=== PATIENT | male | born 2000 | race American Indian/Alaskan Native ===

== ENCOUNTER 2020-05-13 09:35 | Emergency (ER) | payer SELFPAY ==
[2020-05-13] MEDS ORDERED: IPRATROPIUM 0.02% NEBU 2.5 ML IH ONE ×2 (11:27→12:30)
[2020-05-13] MEDS ORDERED: predniSONE 50 MG TAB PO ONE (11:27)
[2020-05-13] MEDS ORDERED: ALBUTEROL 2.5 MG/3 ML NEBU IH ONE ×2 (11:27→12:30)
--- NOTE | 2020-05-13 12:24 | Emergency Department Report ---
ED Asthma HPI - General Chief Complaint: Adult Asthma Stated Complaint: ASTHMA Time Seen by Provider: 05/13/20 11:22 Source: patient Mode of arrival: Ambulatory Limitations: No Limitations - History of Present Illness Initial Comments: 19-year-old -[place] male presents to the emergency room reporting he is having wheezing and productive cough for the last few days. Patient states that he has been smoking Black and mouth cigars and this is what irritates it. Patient states that he has been out of his inhalers for years. Patient states that he had childhood asthma and thought that he had outgrown it. Patient denies any fever chills no nausea no vomiting no chest pain or shortness of breath. MD Complaint: wheezing Onset/Timin -: days(s) Severity: moderate Context: ran out of meds, smoke exposure - Related Data Current Asthma Therapy: none Previous Rx's Medication Instructions Recorded Last Taken Type Albuterol Sulfate [Proventil Hfa] 6.7 gm IH QID PRN #1 [email or web address] 05/13/20 Unknown Rx predniSONE [Deltasone] 40 mg PO QDAY 5 Days #10 tab 05/13/20 Unknown Rx Allergies Allergy/AdvReac Type Severity Reaction Status Date / Time No Known Allergies Allergy Unverified 05/13/20 10:17 ED Review of Systems ROS: Stated complaint: ASTHMA Other details as noted in HPI Comment: All other systems reviewed and negative Respiratory: cough, wheezing ED Past Medical Hx - Past Medical History Previous Medical History?: No Hx Asthma: Yes - Surgical History Past Surgical History?: No - Social History Smoking Status: Current Every Day Smoker - Medications Home Medications: Home Medications Medication Instructions Recorded Confirmed Last Taken Type Albuterol Sulfate [Proventil Hfa] 6.7 gm IH QID PRN #1 [email or web address] 05/13/20 Unknown Rx predniSONE [Deltasone] 40 mg PO QDAY 5 Days #10 tab 05/13/20 Unknown Rx ED Physical Exam - General Limitations: No Limitations General appearance: alert, in no apparent distress - Head Head exam: Present: atraumatic, normocephalic - Eye Eye exam: Present: normal appearance - ENT ENT exam: Present: mucous membranes moist - Respiratory Respiratory exam: Present: wheezes, rhonchi - Cardiovascular Cardiovascular Exam: Present: regular rate, normal rhythm. Absent: systolic murmur, diastolic murmur, rubs, gallop - GI/Abdominal GI/Abdominal exam: Present: soft, normal bowel sounds - Neurological Exam Neurological exam: Present: alert, oriented X3 - Psychiatric Psychiatric exam: Present: normal affect, normal mood - Skin Skin exam: Present: warm, dry, intact, normal color. Absent: rash ED Course Vital Signs 05/13/20 05/13/20 05/13/20 10:21 11:28 11:38 Temperature 98.1 F Pulse Rate 86 Pulse Rate [ 86 Anterior Bilateral Throughout] Respiratory 16 18 Rate Respiratory 19 Rate [Anterior Bilateral Throughout] Blood Pressure 126/79 O2 Sat by Pulse 95 95 Oximetry 05/13/20 12:53 Temperature Pulse Rate Pulse Rate [ 87 Anterior Bilateral Throughout] Respiratory Rate Respiratory 18 Rate [Anterior Bilateral Throughout] Blood Pressure O2 Sat by Pulse Oximetry - Reevaluation(s) Reevaluation #1: 05/13/20 12:32 Respiratory therapist was called to evaluate patient. He also recommends patient to have another 5 of albuterol and 0.5 of Atrovent. ED Medical Decision Making - Medical Decision Making 19-year-old -[place] male presents to the emergency room reporting he is having wheezing and productive cough for the last few days. Patient states that he has been smoking Black and mouth cigars and this is what irritates it. Patient states that he has been out of his inhalers for years. Patient states that he had childhood asthma and thought that he had outgrown it. Patient denies any fever chills no nausea no vomiting no chest pain or shortness of breath. Patient is given albuterol and Atrovent and prednisone. Critical care attestation.: If time is entered above; I have spent that time in minutes in the direct care of this critically ill patient, excluding procedure time. ED Disposition Clinical Impression: Asthma attack Qualifiers: Asthma severity: mild Asthma persistence: intermittent Qualified Code(s): J45.21 - Mild intermittent asthma with (acute) exacerbation Disposition: TO HOME OR SELFCARE Is pt being admited?: No Does the pt Need Aspirin: No Condition: Stable Instructions: Asthma (ED) Additional Instructions: Please complete your prednisone as prescribed. Use your inhaler as prescribed. Is very important for you to follow-up with a primary care provider or motocross racer. I have listed information below for your convenience. Prescriptions: predniSONE [Deltasone] 40 mg PO QDAY 5 Days #10 tab Albuterol Sulfate [Proventil Hfa] 6.7 gm IH QID PRN #1 [email or web address] PRN Reason: Wheezing Referrals: PRIMARY CAREMD [Primary Care Provider] - 3-5 Days [facility] [Provider Group] - 3-5 Days RAPHAEL STOUT MD [Staff Physician] - 3-5 Days Forms: Work/School Release Form(ED)
[2020-05-13 14:54] VITALS: BP 124/72
== END 2020-05-13 13:12 | disposition home or self-care (01) ==
LOC: ED 09:35
DX: J45.901 Unspecified asthma with (acute) exacerbation (principal)
CPT/HCPCS: 94640; 99283; J7512; 94644